=== PATIENT | male | born 1980 | race Two or more races ===

== ENCOUNTER 2017-12-02 14:55 | Emergency (ER) | payer SELFPAY ==
[~2017-12-02] VITALS: Ht 162.6 cm; Wt 77.1 kg
[2017-12-02 15:49] LABS: BASOPHILS % (AUTO) 0.1 % (0.0-2.0); HEMATOCRIT 34.9 % (36.7-47.1); HEMOGLOBIN 11.7 g/dL (12.5-16.3); LYMPHOCYTES # (AUTO) 0.8 K/uL (20.0-40.0); MEAN CORPUSCULAR HEMOGLOBIN 26.9 uug (23.8-33.4); MEAN CORPUSCULAR HGB CONC 34 g/dL (32.5-36.3); MEAN CORPUSCULAR VOLUME 80.2 fL (73.0-96.2); MONOCYTES # (AUTO) 0.4 K/uL (2.0-10.0); MONOCYTES % (AUTO) 6.1 % (0.0-11.0); NEUTROPHILS # (AUTO) 5.2 K/uL (1.8-8.9); NEUTROPHILS % (AUTO) 80.8 % (38.5-71.5); PLATELET COUNT (AUTO) 171 K/uL (152-348); RED BLOOD CELL COUNT(AUTO) 4.35 MIL/uL (4.06-5.63); WHITE BLOOD COUNT (AUTO) 6.4 K/uL (3.6-10.2)
[2017-12-02 15:59] LABS: CREATININE 0.7 mg/dL (0.6-1.3); POTASSIUM 3.3 mmol/L (3.5-5.1)
--- NOTE | 2017-12-02 18:15 | NUR ---
PT AWAKE NOW, KNOWS HIS NAME AND WHERE HE IS AND WHY HE IS IN HOSPITAL
--- NOTE | 2017-12-02 18:26 | NUR ---
PT REQUESTING JUICE. PO CHALLENGED SUCCESSFULLY.
--- NOTE | 2017-12-02 21:07 | NUR ---
Patient discharged to home in stable conditon. Written and verbal after care instructions given. Patient verbalizes understanding of instructions. AAOX3. Pt ambulated out of ER in steady gait. All belongings with pt. VSS. NAD noted.
[2017-12-02 21:08] VITALS: BP 133/72
== END 2017-12-02 21:09 | disposition home or self-care (01) ==
LOC: ER 14:59
DX: F10.129 Alcohol abuse with intoxication, unspecified (principal)
CPT/HCPCS: 36415; 70450; 85025; A4663; G0480

== ENCOUNTER 2017-12-03 09:24 | Emergency (ER) | payer SELFPAY ==
[~2017-12-03] VITALS: Ht 162.6 cm; Wt 65.8 kg
== END 2017-12-03 10:04 | disposition left against medical advice (07) ==
LOC: ER 09:25
DX: Z53.21 Procedure and treatment not carried out due to patient leaving prior to being seen by health care provider (principal)
CPT/HCPCS: A4663

== ENCOUNTER 2017-12-03 14:03 | Emergency (ER) | payer SELFPAY ==
[~2017-12-03] VITALS: Ht 162.6 cm; Wt 65.8 kg
[2017-12-03] MEDS ORDERED: NEOMY/BACITRA/POLYMYXIN B OINT UD PACKET TP ONE ×2 (16:44→16:45)
[2017-12-03 19:27] VITALS: BP 129/84
== END 2017-12-03 19:27 | disposition home or self-care (01) ==
LOC: ER 14:05
DX: F10.129 Alcohol abuse with intoxication, unspecified (principal)
CPT/HCPCS: 99283; A4217; A4663

== ENCOUNTER 2017-12-03 21:53 | Emergency (ER) | payer SELFPAY ==
[~2017-12-03] VITALS: Ht 162.6 cm; Wt 65.8 kg
--- NOTE | 2017-12-03 22:15 | NUR ---
PT BIB [facility] FOR ALCOHOL INTOXICATION. THIS IS PT'S 4TH ER VISIT IN 24 HRS. PT WAS RECENTLY DISCHARGED FROM THIS ER FEW HRS AGO. VSS.
--- NOTE | 2017-12-04 01:31 | NUR ---
PT SLEEPING IN BED. RESPIRATIONS EVEN + UNLABORED. VSS. NO ACUTE DISTRESS NOTED.
--- NOTE | 2017-12-04 04:54 | NUR ---
PT STILL SLEEPING IN BED WITH NO ACUTE DISTRESS NOTED. PT AROUSABLE TO TACTILE STIMULI. WILL CTM.
--- NOTE | 2017-12-04 06:59 | NUR ---
PT STILL SLEEPING IN BED W/ NAD NOTED. REPORT GIVEN TO DAY SHIFT RN.
--- NOTE | 2017-12-04 07:21 | NUR ---
RECIEVED PT IN BED, RESTING COMFORTABLY, NAD NOTED.
--- NOTE | 2017-12-04 08:03 | NUR ---
Left message for Gabe(social sciences research scientist), to see pt, per MD request.
--- NOTE | 2017-12-04 08:10 | NUR ---
Pt is A/O x3 at this time. Breakfast provided, ate w/ good appetite.
--- NOTE | 2017-12-04 08:30 | NUR ---
Patient given written and verbal discharge instructions. Patient verbalizes understanding of instructions. Patient is ambulatory with steady gait. Refuses offer of [facility] placement. Patient given list of available shelters in surrounding area. Bus token provided per pt request. pt left ER w/ steady gait.
[2017-12-04 08:32] VITALS: BP 110/78
== END 2017-12-04 08:32 | disposition home or self-care (01) ==
LOC: ER 21:54
DX: F10.129 Alcohol abuse with intoxication, unspecified (principal)
CPT/HCPCS: 99283; A4663

== ENCOUNTER 2017-12-04 13:37 | Emergency (ER) | payer SELFPAY ==
[~2017-12-04] VITALS: Ht 170.2 cm; Wt 72.6 kg
--- NOTE | 2017-12-04 13:45 | NUR ---
Pt was discharge from [facility] 4 hours ago.
--- NOTE | 2017-12-04 13:45 | NUR ---
Dr Bowens at the bedside for MSE.
--- NOTE | 2017-12-04 14:39 | NUR ---
Incontinance anf hygeine care given. Pt awake but lethergic. NO c/o pain/discomfort.
--- NOTE | 2017-12-04 16:00 | NUR ---
Pt is awake and alert and requesting food and drink. provided dinner.
--- NOTE | 2017-12-04 16:48 | NUR ---
Patient is ambulatory with steady gait. Refuses offer of [facility] placement. Patient given list of available shelters in surrounding area.
--- NOTE | 2017-12-04 16:49 | NUR ---
Pt left ER w/ steady gait.
[2017-12-04 16:51] VITALS: BP 124/87
== END 2017-12-04 16:52 | disposition home or self-care (01) ==
LOC: ER 13:37
DX: F10.129 Alcohol abuse with intoxication, unspecified (principal); Z59.0 Homelessness
CPT/HCPCS: A4663